=== PATIENT | female | born 1970 | race Caucasian/White ===

== ENCOUNTER 2020-07-10 21:00 | Emergency (ER) | payer OTHER ==
[~2020-07-10] VITALS: Ht 157.5 cm; Wt 65.0 kg
[2020-07-10 21:06] VITALS: BP 153/102
--- NOTE | 2020-07-10 21:20 | NUR ---
PT RESTING IN ROOM, SENT FROM [facility] ([place]) FOR EYE EXAM FOR POSSIBLE FETACHED RETINA, PT STATES SHE HAS BEEN SEEING "[id number]" FOR A WHILE, BUT TODAY HAS HAD FLASHES OF WHITE IN HER LEFT EYE
--- NOTE | 2020-07-10 22:02 | NUR ---
ERP AT BEDSIDE, PT WILL BE DC
== END 2020-07-10 22:27 | disposition home or self-care (01) ==
LOC: ED 21:30
DX: H54.62 Unqualified visual loss, left eye, normal vision right eye (principal)
CPT/HCPCS: 99284